=== PATIENT | male | born 1980 | race Asian ===

== ENCOUNTER 2023-01-08 08:25 | Emergency (ER) | payer MEDICAID, OTHER ==
[~2023-01-08] VITALS: Ht 157.5 cm; Wt 61.4 kg
[2023-01-08 09:00] VITALS: BP 143/93
[2023-01-08] MEDS ORDERED: ketorolac trometh inj. 60 MG/2 ML VIAL IM ONE (09:50)
[2023-01-08] MEDS ORDERED: predniSONE 20 mg tablet PO ONE (09:50)
[2023-01-08] MEDS ORDERED: COLC0.6T72 PO (09:53)
[2023-01-08] MEDS ORDERED: METH4TAB3 PO (09:53)
[2023-01-08] MEDS ORDERED: INDO-12 PO (09:53)
== END 2023-01-08 10:08 | disposition home or self-care (01) ==
LOC: ER 08:27
DX: M10.072 Idiopathic gout, left ankle and foot (principal); Z79.899 Other long term (current) drug therapy
CPT/HCPCS: 96372; 99283; J1885; J7512

== ENCOUNTER 2024-01-31 18:12 | Emergency (ER) | payer BC, OTHER ==
[~2024-01-31] VITALS: Ht 157.5 cm; Wt 61.0 kg
[~2024-01-31 18:12] MED LIST: COLC0.6T72 PO; INDO-12 PO; METH4TAB3 PO
[2024-01-31] MEDS ORDERED: IBUP-1984 PO (20:30)
[2024-01-31] MEDS: ketorolac trometh. 30mg/ml inj. IM ONE (20:58)
[2024-01-31 21:05] VITALS: BP 120/64; PULSE 80; RESP 16; TEMP 98.3; O2SAT 98
== END 2024-01-31 21:07 | disposition home or self-care (01) ==
LOC: ER 18:12
DX: S46.811A Strain of other muscles, fascia and tendons at shoulder and upper arm level, right arm, initial encounter (principal); Z79.899 Other long term (current) drug therapy; Z79.1 Long term (current) use of non-steroidal anti-inflammatories (NSAID); X50.9XXA Other and unspecified overexertion or strenuous movements or postures, initial encounter; Y93.89 Activity, other specified; Y92.89 Other specified places as the place of occurrence of the external cause; Y99.8 Other external cause status
CPT/HCPCS: 73030; 96372; 99283; J1885; A4565